=== PATIENT | male | born 1945 | race Caucasian/White ===

== ENCOUNTER 2022-04-19 03:24 | Emergency (ER) | payer BC ==
[~2022-04-19] VITALS: Ht 177.8 cm; Wt 68.0 kg
[2022-04-19 03:43] VITALS: BP 144/83
--- NOTE | 2022-04-19 03:54 | NUR ---
PT TAKEN TO CT
[2022-04-19] MEDS ORDERED: ACETAMINOPHEN 325 MG TABLET PO ONE (04:00)
[2022-04-19] MEDS ORDERED: LIDOCAINE 1%-EPI 1:100,000 20 ML VIAL ONE (04:28)
[2022-04-19] MEDS ORDERED: ACETAMINOPHEN ES 500 MG TABLET ONE (04:35)
--- NOTE | 2022-04-19 04:40 | NUR ---
AT BEDSIDE FOR LAC REPAIR
[2022-04-19] MEDS ORDERED: CYCLOBENZAPRINE 10 MG TABLET ONE (04:48)
[2022-04-19] MEDS ORDERED: HYDROCODONE/APAP 10/325MG TABLET ONE (04:48)
[2022-04-19] MEDS ORDERED: CYCLOBENZAPRINE 10 MG TABLET PO ONE (05:00)
[2022-04-19] MEDS ORDERED: HYDROCODONE/APAP 10/325MG TABLET PO ONE (05:00)
[2022-04-19 05:10] LABS: BASOPHILS % (AUTO) 0.1 % (0.0-2.0); EOSINOPHILS % (AUTO) 0.1 % (0.0-6.0); HEMATOCRIT 44 % (39-51); HEMOGLOBIN 14.4 g/dL (13.5-17.5); LYMPHOCYTES # (AUTO) 1.1 K/uL (0.8-4.8); LYMPHOCYTES % (AUTO) 12.8 % (20.0-44.0); MEAN CORPUSCULAR HGB CONC 33 g/dl (31.0-36.0); MEAN CORPUSCULAR VOLUME 101 fL (80-96); MONOCYTES # (AUTO) 1.1 K/uL (0.1-1.30); MONOCYTES % (AUTO) 12.3 % (2.0-12.0); NEUTROPHILS # (AUTO) 6.6 K/uL (1.8-8.9); NEUTROPHILS % (AUTO) 74.7 % (43.0-81.0); PLATELET COUNT (AUTO) 187 K/uL (150-450); RED BLOOD CELL COUNT(AUTO) 4.31 MIL/uL (4.5-6.0); WHITE BLOOD COUNT (AUTO) 8.8 K/uL (4.3-11.0)
[2022-04-19] MEDS ORDERED: HYDR-4275 PO ×2 (06:08→06:11)
--- NOTE | 2022-04-19 07:09 | NUR ---
Patient discharged to home in stable condition. Written and verbal after care instructions given. Patient verbalizes understanding of instruction.
== END 2022-04-19 07:29 | disposition home or self-care (01) ==
LOC: ER 03:26
DX: S02.2XXA Fracture of nasal bones, initial encounter for closed fracture (principal); S52.611A Displaced fracture of right ulna styloid process, initial encounter for closed fracture; S01.81XA Laceration without foreign body of other part of head, initial encounter; S01.112A Laceration without foreign body of left eyelid and periocular area, initial encounter; S01.111A Laceration without foreign body of right eyelid and periocular area, initial encounter; M25.511 Pain in right shoulder; E11.9 Type 2 diabetes mellitus without complications; I11.0 Hypertensive heart disease with heart failure; M79.641 Pain in right hand; W18.09XA Striking against other object with subsequent fall, initial encounter; Y93.01 Activity, walking, marching and hiking; Y92.000 Kitchen of unspecified non-institutional (private) residence as the place of occurrence of the external cause; Y99.8 Other external cause status
CPT/HCPCS: 99285; 72125; 12014; 73130; 73030; 70450; 70486; 85025; 85610; 85730; 36415; 86850; J3490

== ENCOUNTER 2022-04-21 11:38 | Emergency (ER) | payer BC ==
[~2022-04-21] VITALS: Ht 175.3 cm; Wt 59.0 kg
[~2022-04-21 11:38] MED LIST: HYDR-4275 PO
[2022-04-21 11:43] VITALS: BP 103/68
--- NOTE | 2022-04-21 11:44 | NUR ---
"Was seen here 04/19 after I tripped/fall.Called by Dr smith to have splint applied on Right hand Also would like wounds checked". AMBULATORY, PLACED ON BED.
--- NOTE | 2022-04-21 12:14 | NUR ---
BG 143 MD AWARE
--- NOTE | 2022-04-21 12:59 | NUR ---
Patient discharged to home in stable condition. Written and verbal after care instructions given. Patient and verbalizes understanding of instruction.
== END 2022-04-21 12:59 | disposition home or self-care (01) ==
LOC: ER 11:42
DX: S52.611D Displaced fracture of right ulna styloid process, subsequent encounter for closed fracture with routine healing (principal); I10 Essential (primary) hypertension; E11.9 Type 2 diabetes mellitus without complications; Z79.899 Other long term (current) drug therapy; X58.XXXD Exposure to other specified factors, subsequent encounter
CPT/HCPCS: 99283; 29515; 82962; J7030; A6403